=== PATIENT | male | born 1980 | race Caucasian/White ===

== ENCOUNTER 2019-12-23 10:02 | Emergency (ER) | payer BC, SELFPAY ==
[2019-12-23 10:18] VITALS: BMI 30.2
[2019-12-23 10:19] VITALS: BP 149/112; PULSE 70; RESP 26; TEMP 37.6; O2SAT 98; BMI 29.4
--- NOTE | 2019-12-23 10:19 | XR_ITS ---
PROCEDURE: XR CHEST PORTABLE CLINICAL HISTORY: unresponsive Shallow respirations, unresponsive COMPARISON: No exams were available for comparison FINDINGS: The cardiomediastinal silhouette and pulmonary vascularity are within normal limits. Patchy density is present in both lung bases may be due to areas of atelectasis and or infiltrate/possible aspiration There is an endotracheal tube present. The tip is in good position at the T2-T3 level 6 cm above the betina. IMPRESSION: 1. Endotracheal tube in good position. 2. Mild bibasilar airspace disease. 3. The report was called to Dr. Rene at 10:45 a.m. 12/23/2019 Dictated by: Neil Chu MD 12/23/2019 11:25 Electronically signed by Neil Chu MD in [place] 12/23/2019 11:25
--- NOTE | 2019-12-23 10:19 | CT_ITS ---
PROCEDURE: CT HEAD/BRAIN WO CON CLINICAL INDICATION: unresponsive COMPARISON: XR CHEST PORTABLE from 12/23/2019 TECHNIQUE: Axial images obtained. All CT scans at the facility use one or more dose reduction, viz: automated exposure control, ma/kV adjustment per patient size (including targeted exams where dose is matched to indication, i.e. head), or iterative reconstruction technique. FINDINGS: There is diffuse intraparenchymal hemorrhage within the midbrain and upper brainstem. Intraparenchymal hematoma is present and measures approximately 2.8 cm by 2.2 cm. Hemorrhage extends also into the 4th ventricle and in the subarachnoid space in the retro cerebellar region. Hemorrhage also extends into the lower lizette and into the 3rd ventricle. There is mild prominence of the temporal horns of the lateral ventricle suggesting developing hydrocephalus. No midline shift is evident. IMPRESSION: Acute intraparenchymal hemorrhage of the midbrain with hemorrhage also in the 3rd and 4th ventricle. No subarachnoid hemorrhage noted in the suprasellar cistern or pre pontine area as 1 would expect for ruptured basilar tip aneurysm. The hemorrhage could be related to a hypertensive bleed with extension into the ventricles. Cannot completely exclude exclude the possibility of an aneurysm. There is some developing early hydrocephalus. The report was called to Dr. Rene at 10:45 a.m. 12/23/2019 Dictated by: Neil Chu MD 12/23/2019 11:23 Electronically signed by Neil Chu MD in [facility] 12/23/2019 11:23
--- NOTE | 2019-12-23 10:25 | ECG_ITS ---
APPROVED REPORT Exam: Resting ECG HR:125 bpm ECG Measurements Heart Rate [address] 150 P 65 QRSd 92 QRS 43 QT 314 T 44 QTc 453 <Conclusion> Sinus tachycardia Left atrial abnomality Junctional ST depression, probably normal Borderline ECG Electronically signed by : Neftali Wilks, 12/24/2019 05:53:17
[2019-12-23 10:30] LABS: ABG Base Excess -6.7 mmol/L (-2.4-2.3); ABG HCO3 23.6 mmhg (22.0-26.0); ABG Oxygen Saturation 99 % (90-100); ABG PO2 196.4 mmhg (80-100); ABG TCO2 26.2 mmhg (23-27); Oxygen 100% AMBU %
--- NOTE | 2019-12-23 10:31 | PC.NURSE ---
Pt to rad.
[2019-12-23 10:32] LABS: ABG PCO2 84.2 mmhg (35.0-45.0); ABG PH 7.07 mmol/L (7.35-7.45)
[2019-12-23 10:34] LABS: Basophils # 0.2 K/mm3 (0-0.2); Basophils % 2.5 % (0.1-2.0); Eosinophils # 0.6 K/mm3 (0.0-0.4); Hematocrit 50.8 % (42.0-52.0); Hemoglobin 16.8 g/dL (14.1-18.0); Lymphocytes # 3.2 K/mm3 (0.7-4.5); Lymphocytes % 33.3 % (10-50); Mean Corpuscular HGB Conc 33.1 g/dL (31.8-35.4); Mean Corpuscular Hemoglobin 33.7 pg (27.0-31.2); Mean Corpuscular Volume 101.7 fl (80-94); Mean Platelet Volume 9.2 fl (7.4-10.4); Monocytes # 0.7 K/mm3 (0.1-1.0); Monocytes % 7.3 % (1.7-9.3); Neutrophils # 4.9 K/mm3 (1.8-7.8); Neutrophils % 50.8 % (37.0-80.0); Platelet Count 163 K/mm3 (142-424); White Blood Count 9.6 K/mm3 (4.8-10.8)
[2019-12-23 10:35] LABS: Microscopic, Urine URINE MICROSCOPIC (MICROSCOPIC)
[2019-12-23 10:36] LABS: Anion Gap 15.2 mEq/L (5-15); Blood Urea Nitrogen 5 mg/dl (9-20); Calcium 9.5 mg/dl (8.4-10.2); Carbon Dioxide 31 mmol/L (22.0-30.0); Chloride 99 mmol/L (98-107); Creatine Kinase 182 U/L (55-170); Creatinine Clearance Estimated 266 mL/min (50-200); Estimated Glomerular Filt Rate 187 ml/min (>60); GFR (African American) 226 ML/MIN (>60); Glucose 155 mg/dl (74-100); Potassium 3.2 mmoL/L (3.5-5.1); Sodium 142 mmol/L (136-145)
--- NOTE | 2019-12-23 10:36 | HMH.EDGENADL ---
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 The time I documented below is in addition to time spent performing reported procedures but includes the following listed in this critical care notation. Total Critical Care Time: 60 Vital system(s) involved:: Central Nervous System, Respiratory Failure My critical care processes included: Assessment & monitoring of V/S, Initial and Re-exams, Data Review/Interpretation, Coordinating Care, Medication Orders and management, Documentation Medical Decision Making - Medical Records Medical records reviewed: Yes: I reviewed the patient's medical records. - Jorge Inquiry Pt receiving controlled substance: Yes (ativan) Jorge was queried for this patient: No Reason not queried -: Emergent pt cond-no time Risks and benefits of using a controlled substance: were not discussed with pt by me Vital Signs: 12/23/19 10:19 12/23/19 10:50 12/23/19 10:59 Temperature 99.6 F Temperature Source Rectal Pulse Rate Pulse Rate [Left Radial] 70 101 H 115 H Respiratory Rate 26 H Blood Pressure Blood Pressure [Right Arm] 149/112 H 186/115 H 185/99 H Blood Pressure Mean [Right Arm] 124 138 127 Blood Pressure Source Blood Pressure Source [Right Arm] Automatic Cuff Automatic Cuff Blood Pressure Position Blood Pressure Position [Right Arm] Sitting Supine Supine 02 Sat by Pulse Oximetry 98 100 100 Oxygen Delivery Method Non-Rebreather Mechanical Ventilation Mechanical Ventilation Oxygen Flow Rate (LPM) 15 12/23/19 11:18 12/23/19 11:22 Temperature 98.3 F Temperature Source Axillary Pulse Rate 142 H Pulse Rate [Left Radial] 139 H Respiratory Rate 18 Blood Pressure 138/80 Blood Pressure [Right Arm] 152/84 H Blood Pressure Mean [Right Arm] 106 Blood Pressure Source Automatic Cuff Blood Pressure Source [Right Arm] Automatic Cuff Blood Pressure Position Sitting Blood Pressure Position [Right Arm] Supine 02 Sat by Pulse Oximetry 99 Oxygen Delivery Method Mechanical Ventilation Ambu-Bag Oxygen Flow Rate (LPM) - Lab Data Lab results reviewed: Yes: I reviewed the patient's lab results. Lab Results 12/23/19 10:10: WBC 9.6, RBC 5.00, Hgb 16.8, Hct 50.8, MCV 101.7 H, MCH 33.7 H, MCHC 33.1, RDW 14.0, Plt Count 163, MPV 9.2, Neut % (Auto) 50.8, Lymph % (Auto) 33.3, [place] % (Auto) 7.3, Eos % (Auto) 6.0, Baso % (Auto) 2.5 H, Neut # (Auto) 4.9, Lymph # (Auto) 3.2, [place] # (Auto) 0.7, Eos # (Auto) 0.6 H, Baso # (Auto) 0.2 12/23/19 10:10: Sodium 142, Potassium 3.2 L, Chloride 99, Carbon Dioxide 31 H, Anion Gap 15.2 H, BUN 5 L, Creatinine 0.50 L, Estimated Creat Clear 266, Estimated GFR 187, Est GFR ( Amer) 226, Glucose 155 H, Calcium 9.5, Total Creatine Kinase 182 H, Troponin I < 0.01, Salicylates < 1.0 L, Acetaminophen < 10 L 12/23/19 10:10: Plasma/Serum Alcohol 162 H 12/23/19 10:10: PT 11.1, INR 1.07, APTT 24.3 12/23/19 10:20: Urine Opiates Screen Negative, Urine Methadone Screen Negative, Ur Barbituates Screen Negative, Ur Phencyclidine Scrn Negative, Ur Amphetamines Screen Negative, U Benzodiazepines Scrn Negative, Urine Cocaine Screen Negative, U Marijuana (THC) Screen Positive H 12/23/19 10:25: O2 % 100% ambu, ABG pH
[2019-12-23 10:37] LABS: Appearance,Urine CLEAR (Clear); Bilirubin,Urine Negative (Negative); Blood, Urine TRACE-I (Negative); Color,Urine YELLOW (Yellow); Glucose,Urine (UA) Negative (Negative); Ketones,Urine Negative (Negative); Leukocyte Esterase,Urine Negative (Negative); Nitrate,Urine Negative (Negative); Protein,Urine 2+ (Negative); Specific Gravity, Urine 1.025 (1.005-1.030); Urobilinogen,Urine 0.2 EU/dl (0.2)
[2019-12-23 10:37] LABS: Acetaminophen < 10 ug/ml (10-30); Ethyl Alcohol 162 mg/dl (0-10); Salicylate < 1.0 mg/dL (2.0-20.0)
--- NOTE | 2019-12-23 10:47 | PC.NURSE ---
Pt returned from rad. Pt's mother at bedside.
[2019-12-23 10:48] LABS: Squamous Epithelial Cell,Urine Occasional #/hpf (0-5)
[2019-12-23 10:50] VITALS: BP 186/115; PULSE 101; O2SAT 100
[2019-12-23 10:50] LABS: Troponin I < 0.01 ng/ml (0.00-0.034)
[2019-12-23 10:52] LABS: Amphetamine/Metha Screen,Urine Negative ng/ml (<1000); Barbiturates Screen,Urine Negative ng/ml (<200)
[2019-12-23 10:53] LABS: Benzodiazepines Screen,Urine Negative ng/ml (<200); Cannabinoid Screen,Urine Positive ng/ml (<50)
--- NOTE | 2019-12-23 10:53 | PC.NURSE ---
calling [facility] at this time.
[2019-12-23 10:54] LABS: Cocaine Screen,Urine Negative ng/ml (<300)
[2019-12-23 10:55] LABS: Methadone Screen,Urine Negative ng/ml (<300); Opiate Screen,Urine Negative ng/ml (<300)
[2019-12-23 10:56] LABS: Phencyclidine Screen,Urine Negative ng/ml (<25)
--- NOTE | 2019-12-23 10:56 | PC.NURSE ---
Eyad Gallegos is calling [facility] at this time.
--- NOTE | 2019-12-23 10:56 | PC.NURSE ---
[facility] accept pt and will be on the way
--- NOTE | 2019-12-23 10:58 | PC.NURSE ---
MICHELLE AGUILAR speaking with Dr. Alfaro
[2019-12-23 10:59] VITALS: BP 185/99; PULSE 115; O2SAT 100
--- NOTE | 2019-12-23 11:04 | PC.NURSE ---
spoke with Andrés in pharmacy about getting a versed drip per [facility] recommendations due to his tremors.
--- NOTE | 2019-12-23 11:14 | PC.NURSE ---
report called to Govind Puente RN at ER at this time.
[2019-12-23 11:18] VITALS: BP 152/84; PULSE 139; O2SAT 99
[2019-12-23 11:21] LABS: Lactic Acid 4.7 mmol/L (0.7-2.1)
[2019-12-23 11:22] VITALS: BP 138/80; PULSE 142; RESP 18; TEMP 36.8; O2SAT 95
--- NOTE | 2019-12-23 11:22 | PC.NURSE ---
[facility] staff at [facility]
[2019-12-23 11:25] LABS: Activated Partial Thrombo Time 24.3 seconds (23.6-34.0); INR 1.07 (0.9-1.1); Prothrombin Time 11.1 seconds (9.4-11.8)
== END 2019-12-23 11:22 | disposition short-term general hospital (02) ==
PROVIDERS: Emergency Provider Emergency Medicine
DX: I61.3 Nontraumatic intracerebral hemorrhage in brain stem (principal); J96.02 Acute respiratory failure with hypercapnia; F10.10 Alcohol abuse, uncomplicated; F12.10 Cannabis abuse, uncomplicated; F41.8 Other specified anxiety disorders; Z88.0 Allergy status to penicillin
CPT/HCPCS: 31500; 70450; 71045; 80048; 80305; 80329; 81001; 82550; 82803; 83605; 84484; 85025; 85610; 85730; 87040; 93005; 96365; 96367; 96375; 96376; 99285